=== PATIENT | female | born 1950 | race Hispanic/Latino ===

== ENCOUNTER 2016-07-24 12:16 | Day surgery (SDC) | payer OTHER ==
[2016-07-24] MEDS ORDERED: XYLOCAINE MPF 2% ONE (13:00)
[2016-07-24] MEDS ORDERED: DIPRIVAN 10 MG/ML IV ONE ×2 (13:42)
--- NOTE | 2016-07-24 13:48 | Anesthesia Consultation ---
Anesthesia Consult and Med Hx Date of service: 07/24/16 - Airway Anesthetic Teeth Evaluation: Good ROM Head & Neck: Adequate Mental/Hyoid Distance: Adequate Mallampati Class: Class II Intubation Access Assessment: Good - Pulmonary Exam CTA: Yes - Cardiac Exam Cardiac Exam: No Murmur - Pre-Operative Health Status ASA Pre-Surgery Classification: ASA2 Proposed Anesthetic Plan: MAC - Cardiovascular System Hx Hypertension: Yes
[2016-07-24] MEDS ORDERED: NACL 0.9% 1000 ML 1,000 ML IV SCH (14:00)
[2016-07-24 14:50] VITALS: BP 140/78
--- NOTE | 2016-07-24 14:59 | Operative Report ---
Operative Report Operative Report: Date of procedure: 07/24/2016 Procedure: Colonoscopy with multiple hot biopsy polypectomies, multiple polyp ablations. Attending physician: Al Forbes MD Salesman/Owner: Al Forbes MD Indication: Patient is a 66-year-old female who presents for colorectal cancer screening. Consent: Informed consent was obtained after advising the patient and family regarding nature of this procedure, its indications, potential benefits as well as possible complications including but not limited to bleeding perforation and adverse reaction to medication, infection as well as other cardiopulmonary complications. An informed written and verbal consent was then obtained after due opportunity was provided for questions and answers. Monitoring: Patient was monitored continuously with pulse oximetry and electrocardiographic recordings as well as blood pressure recordings. Vital signs remained stable throughout this procedure with no untoward events. Preoperative assessment: Patient was assessed immediately prior to this procedure for capacity to tolerate monitored anesthesia care and moderate sedation as well as general anesthesia. Patient's ASA classification is 2, Mallampati class is 2, Hyomental distance is 3. Instrument: Fujinon videocolonoscope Medications: Propofol given intravenously in divided doses. For details please refer to anesthesia records. Description of procedure: Patient was placed in the left lateral decubitus position after achieving sedation, a digital rectal examination was performed following which the colonoscope was introduced into the anal verge and advanced to the cecum which was identified by the cecal valve, the appendiceal orifice, as well as by the cecal strap and direct transillumination. The colonoscope was subsequently withdrawn with careful inspection of all mucosal surfaces. Patient tolerated this procedure well and was subsequently taken to the recovery room. The following findings were noted. Findings: The colon was moderately tortuous. Beginning in the rectum, there was a sessile 4-5 mm polyp close to the anal verge which was removed by hot biopsy polypectomy and retrieved. The sigmoid colon patient had a 5-6 mm polyp which was again sessile and removed by hot biopsy polypectomy and retrieved. There also was another flat diminutive polyp adjoining this which was ablated. In the descending colon, patient had a sessile 8 mm polyp which was removed by hot biopsy polypectomy and retrieved. There were a few scattered diverticula in the sigmoid and descending colon. The rest of the colon to the cecum was normal although patient has substantial retained stool in the ascending colon and in the transverse colon which could not be fully were irrigated. Much as this was the case however there were no gross lesions seen in the ascending colon and transverse colon. On a reflexed view at the anal verge patient had internal hemorrhoids. Impression: Polyp status post hot biopsy polypectomy. Sigmoid colon polyp status post hot biopsy polypectomy. Sigmoid colon polyp status post ablation. Descending colon polyp status post hot biopsy polypectomy. Diverticular disease of the sigmoid and descending colon. Substantial retained stool in the ascending colon and proximal transverse colon. Internal hemorrhoids Plan: Follow pathology report. High-fiber diet. Consider earlier colonoscopy, possibly in one year due to the retained stool in the ascending colon and transverse colon which obscured these areas during the examination.
--- NOTE | 2016-07-24 15:00 | Discharge Summary ---
Short Stay Discharge Plan Activity: advance as tolerated Weight Bearing Status: Weight Bear as Tolerated Diet: regular Additional Instructions: Post Sedation D/C Instructions When you return home you may resume your regular diet unless otherwise directed. -Go directly home from the hospital and rest quietly. You may resume normal activities tomorrow. -Do NOT drive, return to work, operate any machinery or make any important personal or business decisions today. -Do NOT drink any alcohol or take nerve or sleeping drugs. They add to the effects of the medicine still present in your body. Follow up with Dr. Forbes in 2 weeks to obtain pathology results. High Fiber Diet.
--- NOTE | 2016-07-24 15:17 | Post Anesthesia Evaluation ---
- Post Anesthesia Evaluation Patient Participated: Yes Airway Patent: Yes Stable Respiratory Function: Yes Nausea/Vomiting: No Temp > 96.8F: Yes Pain Manageable: Yes Adequeate Hydration: Yes Anesthesia Complications: No
== END 2016-07-24 12:17 | disposition home or self-care (01) ==
LOC: GIO 12:16
PROVIDERS: ATTEND Internal Medicine Gastroenterology
DX: K62.1 Rectal polyp (principal); K63.5 Polyp of colon; K57.30 Diverticulosis of large intestine without perforation or abscess without bleeding; K64.8 Other hemorrhoids; K63.89 Other specified diseases of intestine; D64.9 Anemia, unspecified; I10 Essential (primary) hypertension; Z72.89 Other problems related to lifestyle; Z90.710 Acquired absence of both cervix and uterus; Z98.890 Other specified postprocedural states; Z82.49 Family history of ischemic heart disease and other diseases of the circulatory system
CPT/HCPCS: 45384; 45388; 88305; J2704; J7030

== ENCOUNTER 2019-04-26 09:21 | Outpatient (CLI) | payer MEDICARE ==
--- NOTE | 2019-04-26 14:22 | Mammography Report ---
DIGITAL SCREENING MAMMOGRAM WITH CAD, 04/26/2019 INDICATION: Routine screening mammography. TECHNIQUE: Digital bilateral 2D mammography was obtained in the craniocaudal and mediolateral obliq ue projections. This examination was interpreted with the benefit of Computer-Aided Detection analysi s. COMPARISON: None available. FINDINGS: Breast Density: The breasts are heterogeneously dense, which may obscure small masses. Bilateral parenchymal asymmetries require additional imaging. No architectural distortion or suspicio us calcifications. IMPRESSION: Bilateral asymmetries requiring additional imaging. Recommend recall for bilateral spot m agnification views and bilateral breast ultrasound if needed. Follow up recommendation: Special View: Mag Category 0: Incomplete. Needs additional imaging evaluation and/or prior mammograms for comparison. A "normal" or negative report should not discourage follow up or biopsy of a clinically significant f inding. A written summary of these findings will be mailed to the patient. The patient will be entered into a mammography reporting system which will generate a reminder letter for the patient's next appointmen t at the appropriate interval. The [employer] recommends yearly mammograms starting at age 40 and continuing as l esper[place] as a woman is in good health. Breast MRI is recommended for women with an approximate 20-25% or greater lifetime risk of breast cancer, including women with a strong family history of breast or ova kaylene cancer or who have been treated for Hodgkin's disease. Signer Name: Jimmy Henderson MD Signed: 04/26/2019 2:17 PM Workstation Name: [id number]
== END 2019-04-26 09:22 | disposition home or self-care (01) ==
LOC: MAMMO 09:21
PROVIDERS: ATTEND Internal Medicine
DX: Z12.31 Encounter for screening mammogram for malignant neoplasm of breast (principal)
CPT/HCPCS: 77067